=== PATIENT | female | born 1930 | race Caucasian/White ===

== ENCOUNTER 2016-04-23 12:49 | Emergency (ER) | payer MEDICARE, BC ==
[2016-04-23] MEDS ORDERED: MORPHINE SULFATE 10 MG/ML SOL IV ONE (13:21)
[2016-04-23] MEDS ORDERED: MORPHINE SULFATE 10 MG/ML SOL ONE (13:41)
[2016-04-23 13:58] VITALS: PULSE 64; RESP 16; TEMP 98.9
[2016-04-23 14:24] VITALS: BP 204/88; O2SAT 98
== END 2016-04-23 14:15 | disposition short-term general hospital (02) | DRG 536 ==
LOC: ED 12:49
DX: S72.001A Fracture of unspecified part of neck of right femur, initial encounter for closed fracture (principal); M25.571 Pain in right ankle and joints of right foot; W19.XXXA Unspecified fall, initial encounter
CPT/HCPCS: 73600; 96374; 99284; 99285; J2270

== ENCOUNTER 2016-05-09 12:03 | Inpatient (IN) | payer MEDICARE, BC ==
[2016-05-09] MEDS ORDERED: PATIENT EDUCATION 1 MISC PRN (17:14)
[2016-05-09] MEDS ORDERED: WARFARIN SODIUM 4 MG PO SCH (18:00)
[2016-05-09] MEDS: WARFARIN SODIUM 2 MG TAB PO SCH (19:28)
[2016-05-09] MEDS: CALCIUM CARBONATE 500 MG TAB PO SCH (20:55)
[2016-05-09] MEDS: ACETAMINOPHEN 500 MG 500 MG TAB PO PRN (20:56)
[2016-05-09] MEDS: LABETALOL HYDROCHLORIDE 100 MG TAB PO SCH (20:56)
[2016-05-09] MEDS: APAP/OXYCODONE 325/5 TAB PO PRN (22:40)
[2016-05-10] MEDS: APAP/OXYCODONE 325/5 TAB PO PRN (05:05)
[2016-05-10 07:19] LABS: CALCIUM 8.4 mg/dl (8.5-10.1)
[2016-05-10 07:20] LABS: BASOPHILS % (AUTO) 1 % (0-3); EOSINOPHILS % (AUTO) 1 % (0-9); HEMATOCRIT 26 % (35-47); MEAN CORPUSCULAR HGB CONC 34.8 gm/dl (32.0-36.0); MEAN CORPUSCULAR VOLUME 86 fL (81-99); MONOCYTES % (AUTO) 9.2 % (0-12); NEUTROPHILS % (AUTO) 81.7 % (37-80)
[2016-05-10] MEDS: PANTOPRAZOLE SODIUM 40 MG ECT PO SCH (08:06)
[2016-05-10] MEDS: FLUTICASONE PROPIONATE SPR NAS SCH (09:24)
[2016-05-10] MEDS: LABETALOL HYDROCHLORIDE 100 MG TAB PO SCH ×2 (09:24→20:21)
[2016-05-10] MEDS: CALCIUM CARBONATE 500 MG TAB PO SCH ×2 (09:24→20:20)
[2016-05-10] MEDS: ASPIRIN EC 81 MG PO SCH (09:26)
[2016-05-10] MEDS: FUROSEMIDE 40 MG TAB PO SCH (09:26)
[2016-05-10] MEDS: FERROUS SULFATE 325 MG TAB PO SCH (09:26)
[2016-05-10] MEDS: MULTIVITAMIN2 1 EA TAB PO SCH (09:26)
[2016-05-10] MEDS: GLUCOSAMINE SULFATE 500 MG CAP PO SCH ×2 (09:27→20:23)
[2016-05-10] MEDS: FUROSEMIDE 20 MG TAB PO SCH (13:00)
[2016-05-10] MEDS ORDERED: WARFARIN SODIUM 4 MG TAB PO SCH (18:00)
[2016-05-10] MEDS ORDERED: WARFARIN SODIUM 2 MG TAB PO SCH (18:00)
[2016-05-11] MEDS: PANTOPRAZOLE SODIUM 40 MG ECT PO SCH (06:36)
[2016-05-11] MEDS: ACETAMINOPHEN 500 MG 500 MG TAB PO PRN ×3 (07:37→22:00)
[2016-05-11] MEDS: FLUTICASONE PROPIONATE SPR NAS SCH (08:47)
[2016-05-11] MEDS: FERROUS SULFATE 325 MG TAB PO SCH (08:48)
[2016-05-11] MEDS: ASPIRIN EC 81 MG PO SCH (08:48)
[2016-05-11] MEDS: GLUCOSAMINE SULFATE 500 MG CAP PO SCH ×2 (08:48→20:06)
[2016-05-11] MEDS: CALCIUM CARBONATE 500 MG TAB PO SCH ×2 (08:49→20:05)
[2016-05-11] MEDS: LABETALOL HYDROCHLORIDE 100 MG TAB PO SCH ×2 (08:49→20:05)
[2016-05-11] MEDS: FUROSEMIDE 40 MG TAB PO SCH (08:49)
[2016-05-11] MEDS: MULTIVITAMIN2 1 EA TAB PO SCH (08:49)
[2016-05-11] MEDS: FUROSEMIDE 20 MG TAB PO SCH (12:02)
[2016-05-11] MEDS: WARFARIN SODIUM 2 MG TAB PO SCH (17:23)
[2016-05-11] MEDS: LISINOPRIL 20 MG TAB PO SCH (17:23)
[2016-05-12] MEDS: PANTOPRAZOLE SODIUM 40 MG ECT PO SCH (06:15)
[2016-05-12] MEDS: ACETAMINOPHEN 500 MG 500 MG TAB PO PRN ×2 (06:26→20:00)
[2016-05-12 07:41] LABS: APPEARANCE,URINE Clear; BILIRUBIN,URINE NEGATIVE (NEGATIVE); COLOR,URINE Yellow; GLUCOSE, URINE (UA) NEGATIVE (NEGATIVE); KETONES,URINE NEGATIVE (NEGATIVE); LEUKOCYTE ESTERASE ,URINE NEGATIVE (NEGATIVE); NITRATE,URINE NEGATIVE (NEGATIVE); OCCULT BLOOD,URINE NEGATIVE (NEG-TRACE); PH,URINE 5.5; UROBILINOGEN,URINE 0.2 (0.2-1.0 EU)
[2016-05-12 08:24] LABS: RBC,URINE NEG (0-3AV/HPF); WBC,URINE 0-2 (0-5AV/HPF)
[2016-05-12] MEDS: LABETALOL HYDROCHLORIDE 100 MG TAB PO SCH ×2 (08:40→20:01)
[2016-05-12] MEDS: FERROUS SULFATE 325 MG TAB PO SCH (08:41)
[2016-05-12] MEDS: CALCIUM CARBONATE 500 MG TAB PO SCH ×2 (08:41→20:01)
[2016-05-12] MEDS: ASPIRIN EC 81 MG PO SCH (08:41)
[2016-05-12] MEDS: MULTIVITAMIN2 1 EA TAB PO SCH (08:42)
[2016-05-12] MEDS: FLUTICASONE PROPIONATE SPR NAS SCH (08:42)
[2016-05-12] MEDS: GLUCOSAMINE SULFATE 500 MG CAP PO SCH ×2 (08:43→20:01)
[2016-05-12] MEDS: FUROSEMIDE 40 MG TAB PO SCH (08:44)
[2016-05-12] MEDS: LISINOPRIL 20 MG TAB PO SCH (08:45)
[2016-05-12] MEDS: FUROSEMIDE 20 MG TAB PO SCH (12:09)
[2016-05-12] MEDS ORDERED: WARFARIN SODIUM 2 MG TAB PO SCH (18:00)
[2016-05-12] MEDS ORDERED: WARFARIN SODIUM 1 MG TAB ONE ×2 (19:08)
[2016-05-12] MEDS: WARFARIN SODIUM 2 MG TAB PO SCH (19:10)
[2016-05-12] MEDS: TAMSULOSIN HYDROCHLORIDE 0.4 MG CAP PO SCH (20:02)
[2016-05-13] MEDS: PANTOPRAZOLE SODIUM 40 MG ECT PO SCH (06:15)
[2016-05-13] MEDS: ACETAMINOPHEN 500 MG 500 MG TAB PO PRN ×2 (06:17→22:55)
[2016-05-13 07:12] LABS: CALCIUM 8.2 mg/dl (8.5-10.1); POTASSIUM 3.9 mMol/L (3.5-5.1)
[2016-05-13 07:20] LABS: BASOPHILS % (AUTO) 1 % (0-3); EOSINOPHILS % (AUTO) 1 % (0-9); HEMATOCRIT 26 % (35-47); MEAN CORPUSCULAR HGB CONC 33.3 gm/dl (32.0-36.0); MEAN CORPUSCULAR VOLUME 86 fL (81-99); MONOCYTES % (AUTO) 6.9 % (0-12); NEUTROPHILS % (AUTO) 80.9 % (37-80)
[2016-05-13] MEDS: ASPIRIN EC 81 MG PO SCH (09:06)
[2016-05-13] MEDS: FERROUS SULFATE 325 MG TAB PO SCH (09:06)
[2016-05-13] MEDS: CALCIUM CARBONATE 500 MG TAB PO SCH ×2 (09:07→20:43)
[2016-05-13] MEDS: MULTIVITAMIN2 1 EA TAB PO SCH (09:07)
[2016-05-13] MEDS: FUROSEMIDE 40 MG TAB PO SCH (09:07)
[2016-05-13] MEDS: LABETALOL HYDROCHLORIDE 100 MG TAB PO SCH ×2 (09:08→20:44)
[2016-05-13] MEDS: FLUTICASONE PROPIONATE SPR NAS SCH (09:09)
[2016-05-13] MEDS: LISINOPRIL 20 MG TAB PO SCH (09:18)
[2016-05-13] MEDS: GLUCOSAMINE SULFATE 500 MG CAP PO SCH ×2 (14:29→20:43)
[2016-05-13] MEDS: FUROSEMIDE 20 MG TAB PO SCH (14:30)
[2016-05-13] MEDS ORDERED: WARFARIN SODIUM 6 MG TAB PO SCH ×2 (18:00→18:15)
[2016-05-13] MEDS ORDERED: WARFARIN SODIUM 2 MG TAB PO SCH (18:00)
[2016-05-13] MEDS ORDERED: WARFARIN SODIUM 3 MG TAB PO SCH (18:25)
[2016-05-13] MEDS: TAMSULOSIN HYDROCHLORIDE 0.4 MG CAP PO SCH (20:45)
[2016-05-13] MEDS: ZOLPIDEM TARTRATE 5 MG TAB PO PRN (22:30)
[2016-05-14] MEDS: PANTOPRAZOLE SODIUM 40 MG ECT PO SCH (06:45)
[2016-05-14] MEDS: CALCIUM CARBONATE 500 MG TAB PO SCH ×2 (08:56→20:35)
[2016-05-14] MEDS: FLUTICASONE PROPIONATE SPR NAS SCH (08:56)
[2016-05-14] MEDS: FERROUS SULFATE 325 MG TAB PO SCH (08:57)
[2016-05-14] MEDS: ASPIRIN EC 81 MG PO SCH (08:57)
[2016-05-14] MEDS: LABETALOL HYDROCHLORIDE 100 MG TAB PO SCH ×2 (08:57→20:36)
[2016-05-14] MEDS: LISINOPRIL 20 MG TAB PO SCH (08:57)
[2016-05-14] MEDS: MULTIVITAMIN2 1 EA TAB PO SCH (08:57)
[2016-05-14] MEDS: FUROSEMIDE 40 MG TAB PO SCH (08:57)
[2016-05-14] MEDS: GLUCOSAMINE SULFATE 500 MG CAP PO SCH ×2 (08:58→20:35)
[2016-05-14] MEDS: ACETAMINOPHEN 500 MG 500 MG TAB PO PRN (11:46)
[2016-05-14] MEDS: FUROSEMIDE 20 MG TAB PO SCH (11:47)
[2016-05-14] MEDS ORDERED: WARFARIN SODIUM 4 MG TAB PO SCH (18:00)
[2016-05-14] MEDS: TAMSULOSIN HYDROCHLORIDE 0.4 MG CAP PO SCH (20:34)
[2016-05-14] MEDS: ZOLPIDEM TARTRATE 5 MG TAB PO PRN (22:11)
[2016-05-15] MEDS: PANTOPRAZOLE SODIUM 40 MG ECT PO SCH (08:06)
[2016-05-15] MEDS: ASPIRIN EC 81 MG PO SCH (10:01)
[2016-05-15] MEDS: FERROUS SULFATE 325 MG TAB PO SCH (10:02)
[2016-05-15] MEDS: FLUTICASONE PROPIONATE SPR NAS SCH (10:02)
[2016-05-15] MEDS: GLUCOSAMINE SULFATE 500 MG CAP PO SCH ×2 (10:02→20:49)
[2016-05-15] MEDS: FUROSEMIDE 40 MG TAB PO SCH (10:02)
[2016-05-15] MEDS: MULTIVITAMIN2 1 EA TAB PO SCH (10:03)
[2016-05-15] MEDS: CALCIUM CARBONATE 500 MG TAB PO SCH ×2 (10:03→20:49)
[2016-05-15] MEDS: LISINOPRIL 20 MG TAB PO SCH (10:04)
[2016-05-15] MEDS: LABETALOL HYDROCHLORIDE 100 MG TAB PO SCH ×2 (10:04→20:49)
[2016-05-15] MEDS: FUROSEMIDE 20 MG TAB PO SCH (11:39)
[2016-05-15] MEDS ORDERED: WARFARIN SODIUM 6 MG TAB PO SCH (18:00)
[2016-05-15] MEDS: TAMSULOSIN HYDROCHLORIDE 0.4 MG CAP PO SCH (20:48)
[2016-05-15] MEDS: ZOLPIDEM TARTRATE 5 MG TAB PO PRN (21:39)
[2016-05-16] MEDS: PANTOPRAZOLE SODIUM 40 MG ECT PO SCH (06:37)
[2016-05-16] MEDS: FERROUS SULFATE 325 MG TAB PO SCH (09:01)
[2016-05-16] MEDS: FUROSEMIDE 40 MG TAB PO SCH (09:01)
[2016-05-16] MEDS: LISINOPRIL 20 MG TAB PO SCH (09:01)
[2016-05-16] MEDS: CALCIUM CARBONATE 500 MG TAB PO SCH ×2 (09:03→20:00)
[2016-05-16] MEDS: LABETALOL HYDROCHLORIDE 100 MG TAB PO SCH ×2 (09:04→20:01)
[2016-05-16] MEDS: ASPIRIN EC 81 MG PO SCH (09:05)
[2016-05-16] MEDS: FLUTICASONE PROPIONATE SPR NAS SCH (09:05)
[2016-05-16] MEDS: MULTIVITAMIN2 1 EA TAB PO SCH (09:06)
[2016-05-16] MEDS: GLUCOSAMINE SULFATE 500 MG CAP PO SCH ×2 (09:06→20:02)
[2016-05-16 10:26] LABS: BASOPHILS % (AUTO) 1 % (0-3); EOSINOPHILS % (AUTO) 2 % (0-9); HEMATOCRIT 27 % (35-47); MEAN CORPUSCULAR HGB CONC 32.7 gm/dl (32.0-36.0); MEAN CORPUSCULAR VOLUME 87 fL (81-99)
[2016-05-16] MEDS: FUROSEMIDE 20 MG TAB PO SCH (11:55)
[2016-05-16] MEDS ORDERED: WARFARIN SODIUM 2 MG TAB PO SCH (18:00)
[2016-05-16] MEDS: TAMSULOSIN HYDROCHLORIDE 0.4 MG CAP PO SCH (20:01)
[2016-05-17] MEDS: PANTOPRAZOLE SODIUM 40 MG ECT PO SCH (06:12)
[2016-05-17] MEDS: FLUTICASONE PROPIONATE SPR NAS SCH (08:27)
[2016-05-17] MEDS: MULTIVITAMIN2 1 EA TAB PO SCH (08:28)
[2016-05-17] MEDS: LISINOPRIL 20 MG TAB PO SCH (08:28)
[2016-05-17] MEDS: LABETALOL HYDROCHLORIDE 100 MG TAB PO SCH ×2 (08:28→20:25)
[2016-05-17] MEDS: CALCIUM CARBONATE 500 MG TAB PO SCH ×2 (08:28→20:23)
[2016-05-17] MEDS: FERROUS SULFATE 325 MG TAB PO SCH (08:28)
[2016-05-17] MEDS: ASPIRIN EC 81 MG PO SCH (08:29)
[2016-05-17] MEDS: GLUCOSAMINE SULFATE 500 MG CAP PO SCH ×2 (08:29→20:22)
[2016-05-17] MEDS: FUROSEMIDE 40 MG TAB PO SCH (08:29)
[2016-05-17] MEDS: FUROSEMIDE 20 MG TAB PO SCH (12:48)
[2016-05-17] MEDS: WARFARIN SODIUM 2 MG TAB PO SCH (18:36)
[2016-05-17] MEDS: TAMSULOSIN HYDROCHLORIDE 0.4 MG CAP PO SCH (20:22)
[2016-05-17] MEDS: ZOLPIDEM TARTRATE 5 MG TAB PO PRN (22:02)
[2016-05-18] MEDS: PANTOPRAZOLE SODIUM 40 MG ECT PO SCH (06:37)
[2016-05-18] MEDS: ACETAMINOPHEN 500 MG 500 MG TAB PO PRN ×2 (08:27→20:27)
[2016-05-18] MEDS: CALCIUM CARBONATE 500 MG TAB PO SCH ×2 (08:28→20:24)
[2016-05-18] MEDS: LABETALOL HYDROCHLORIDE 100 MG TAB PO SCH ×2 (08:30→20:25)
[2016-05-18] MEDS: ASPIRIN EC 81 MG PO SCH (08:31)
[2016-05-18] MEDS: FERROUS SULFATE 325 MG TAB PO SCH (08:32)
[2016-05-18] MEDS: FLUTICASONE PROPIONATE SPR NAS SCH (08:32)
[2016-05-18] MEDS: GLUCOSAMINE SULFATE 500 MG CAP PO SCH ×2 (08:33→20:24)
[2016-05-18] MEDS: FUROSEMIDE 40 MG TAB PO SCH (08:34)
[2016-05-18] MEDS: MULTIVITAMIN2 1 EA TAB PO SCH (08:34)
[2016-05-18] MEDS: LISINOPRIL 20 MG TAB PO SCH (08:37)
[2016-05-18] MEDS: FUROSEMIDE 20 MG TAB PO SCH (12:15)
[2016-05-18] MEDS: WARFARIN SODIUM 2 MG TAB PO SCH (18:11)
[2016-05-18] MEDS: TAMSULOSIN HYDROCHLORIDE 0.4 MG CAP PO SCH (20:23)
[2016-05-18] MEDS: ZOLPIDEM TARTRATE 5 MG TAB PO PRN (20:27)
[2016-05-19] MEDS: ACETAMINOPHEN 500 MG 500 MG TAB PO PRN (06:18)
[2016-05-19] MEDS: PANTOPRAZOLE SODIUM 40 MG ECT PO SCH (06:18)
[2016-05-19] MEDS: ASPIRIN EC 81 MG PO SCH (08:16)
[2016-05-19] MEDS: FERROUS SULFATE 325 MG TAB PO SCH (08:16)
[2016-05-19] MEDS: FLUTICASONE PROPIONATE SPR NAS SCH (08:17)
[2016-05-19] MEDS: CALCIUM CARBONATE 500 MG TAB PO SCH ×2 (08:18→21:29)
[2016-05-19] MEDS: FUROSEMIDE 40 MG TAB PO SCH (08:18)
[2016-05-19] MEDS: LISINOPRIL 20 MG TAB PO SCH (08:19)
[2016-05-19] MEDS: MULTIVITAMIN2 1 EA TAB PO SCH (08:19)
[2016-05-19] MEDS: LABETALOL HYDROCHLORIDE 100 MG TAB PO SCH ×2 (08:20→21:27)
[2016-05-19] MEDS: GLUCOSAMINE SULFATE 500 MG CAP PO SCH ×2 (09:34→21:27)
[2016-05-19] MEDS: FUROSEMIDE 20 MG TAB PO SCH (12:01)
[2016-05-19] MEDS ORDERED: WARFARIN SODIUM 6 MG TAB PO SCH (18:00)
[2016-05-19] MEDS: TAMSULOSIN HYDROCHLORIDE 0.4 MG CAP PO SCH (21:26)
[2016-05-19] MEDS: ZOLPIDEM TARTRATE 5 MG TAB PO PRN (21:26)
[2016-05-20] MEDS: ACETAMINOPHEN 500 MG 500 MG TAB PO PRN ×2 (05:55→23:26)
[2016-05-20] MEDS: PANTOPRAZOLE SODIUM 40 MG ECT PO SCH (06:00)
[2016-05-20] MEDS: FERROUS SULFATE 325 MG TAB PO SCH (08:37)
[2016-05-20] MEDS: FLUTICASONE PROPIONATE SPR NAS SCH (08:37)
[2016-05-20] MEDS: ASPIRIN EC 81 MG PO SCH (08:37)
[2016-05-20] MEDS: CALCIUM CARBONATE 500 MG TAB PO SCH ×2 (08:38→20:06)
[2016-05-20] MEDS: GLUCOSAMINE SULFATE 500 MG CAP PO SCH ×2 (08:38→20:08)
[2016-05-20] MEDS: FUROSEMIDE 40 MG TAB PO SCH (08:38)
[2016-05-20] MEDS: LISINOPRIL 20 MG TAB PO SCH (08:39)
[2016-05-20] MEDS: MULTIVITAMIN2 1 EA TAB PO SCH (08:39)
[2016-05-20] MEDS: LABETALOL HYDROCHLORIDE 100 MG TAB PO SCH ×2 (08:39→20:06)
[2016-05-20] MEDS: AMLODIPINE 5 MG TAB PO SCH (09:16)
[2016-05-20] MEDS: FUROSEMIDE 20 MG TAB PO SCH (11:43)
[2016-05-20] MEDS ORDERED: WARFARIN SODIUM 2 MG TAB PO SCH (15:15)
[2016-05-20] MEDS: WARFARIN SODIUM 2 MG TAB PO SCH (18:02)
[2016-05-20] MEDS: ZOLPIDEM TARTRATE 5 MG TAB PO PRN (20:12)
[2016-05-21] MEDS: PANTOPRAZOLE SODIUM 40 MG ECT PO SCH (07:12)
[2016-05-21 07:20] LABS: CALCIUM 8.4 mg/dl (8.5-10.1); POTASSIUM 3.8 mMol/L (3.5-5.1)
[2016-05-21] MEDS: CALCIUM CARBONATE 500 MG TAB PO SCH ×2 (08:35→21:02)
[2016-05-21] MEDS: LABETALOL HYDROCHLORIDE 100 MG TAB PO SCH ×2 (08:39→21:01)
[2016-05-21] MEDS: FERROUS SULFATE 325 MG TAB PO SCH (08:41)
[2016-05-21] MEDS: ASPIRIN EC 81 MG PO SCH (08:41)
[2016-05-21] MEDS: GLUCOSAMINE SULFATE 500 MG CAP PO SCH ×2 (08:42→21:00)
[2016-05-21] MEDS: FUROSEMIDE 40 MG TAB PO SCH (08:42)
[2016-05-21] MEDS: FLUTICASONE PROPIONATE SPR NAS SCH (08:42)
[2016-05-21] MEDS: MULTIVITAMIN2 1 EA TAB PO SCH (08:42)
[2016-05-21] MEDS: LISINOPRIL 20 MG TAB PO SCH (08:43)
[2016-05-21] MEDS: AMLODIPINE 5 MG TAB PO SCH (08:43)
[2016-05-21] MEDS: FUROSEMIDE 20 MG TAB PO SCH (12:15)
[2016-05-21] MEDS: WARFARIN SODIUM 2 MG TAB PO SCH (18:09)
[2016-05-21] MEDS: ZOLPIDEM TARTRATE 5 MG TAB PO PRN (21:00)
[2016-05-21] MEDS: ACETAMINOPHEN 500 MG 500 MG TAB PO PRN (23:29)
[2016-05-22] MEDS: PANTOPRAZOLE SODIUM 40 MG ECT PO SCH (06:12)
[2016-05-22] MEDS: CALCIUM CARBONATE 500 MG TAB PO SCH ×2 (08:58→20:30)
[2016-05-22] MEDS: LABETALOL HYDROCHLORIDE 100 MG TAB PO SCH ×2 (08:59→20:31)
[2016-05-22] MEDS: ASPIRIN EC 81 MG PO SCH (09:00)
[2016-05-22] MEDS: FERROUS SULFATE 325 MG TAB PO SCH (09:01)
[2016-05-22] MEDS: MULTIVITAMIN2 1 EA TAB PO SCH (09:02)
[2016-05-22] MEDS: FLUTICASONE PROPIONATE SPR NAS SCH (09:02)
[2016-05-22] MEDS: FUROSEMIDE 40 MG TAB PO SCH (09:02)
[2016-05-22] MEDS: GLUCOSAMINE SULFATE 500 MG CAP PO SCH ×2 (09:02→20:30)
[2016-05-22] MEDS: AMLODIPINE 5 MG TAB PO SCH (09:03)
[2016-05-22] MEDS: LISINOPRIL 20 MG TAB PO SCH (09:03)
[2016-05-22] MEDS: FUROSEMIDE 20 MG TAB PO SCH (11:46)
[2016-05-22] MEDS ORDERED: WARFARIN SODIUM 6 MG TAB PO SCH (18:00)
[2016-05-22] MEDS: ZOLPIDEM TARTRATE 5 MG TAB PO PRN (20:30)
[2016-05-23] MEDS: PANTOPRAZOLE SODIUM 40 MG ECT PO SCH (06:47)
[2016-05-23] MEDS: ASPIRIN EC 81 MG PO SCH (09:32)
[2016-05-23] MEDS: FLUTICASONE PROPIONATE SPR NAS SCH (09:33)
[2016-05-23] MEDS: FERROUS SULFATE 325 MG TAB PO SCH (09:33)
[2016-05-23] MEDS: FUROSEMIDE 40 MG TAB PO SCH (09:34)
[2016-05-23] MEDS: GLUCOSAMINE SULFATE 500 MG CAP PO SCH ×2 (09:34→20:06)
[2016-05-23] MEDS: AMLODIPINE 5 MG TAB PO SCH (09:35)
[2016-05-23] MEDS: CALCIUM CARBONATE 500 MG TAB PO SCH ×2 (09:35→20:05)
[2016-05-23] MEDS: MULTIVITAMIN2 1 EA TAB PO SCH (09:36)
[2016-05-23] MEDS: LABETALOL HYDROCHLORIDE 100 MG TAB PO SCH ×2 (09:37→20:06)
[2016-05-23] MEDS: LISINOPRIL 20 MG TAB PO SCH (09:37)
[2016-05-23] MEDS: FUROSEMIDE 20 MG TAB PO SCH (11:45)
[2016-05-23] MEDS ORDERED: WARFARIN SODIUM 1 MG TAB PO ONE (18:00)
[2016-05-23] MEDS: ZOLPIDEM TARTRATE 5 MG TAB PO PRN (20:09)
[2016-05-23] MEDS: ACETAMINOPHEN 500 MG 500 MG TAB PO PRN (22:47)
[2016-05-24] MEDS: PANTOPRAZOLE SODIUM 40 MG ECT PO SCH (06:16)
[2016-05-24] MEDS: ASPIRIN EC 81 MG PO SCH (09:38)
[2016-05-24] MEDS: CALCIUM CARBONATE 500 MG TAB PO SCH ×2 (09:38→20:31)
[2016-05-24] MEDS: GLUCOSAMINE SULFATE 500 MG CAP PO SCH ×2 (09:39→20:31)
[2016-05-24] MEDS: LABETALOL HYDROCHLORIDE 100 MG TAB PO SCH ×2 (09:39→20:33)
[2016-05-24] MEDS: MULTIVITAMIN2 1 EA TAB PO SCH (09:39)
[2016-05-24] MEDS: FUROSEMIDE 40 MG TAB PO SCH (09:39)
[2016-05-24] MEDS: AMLODIPINE 5 MG TAB PO SCH (09:39)
[2016-05-24] MEDS: LISINOPRIL 20 MG TAB PO SCH (09:39)
[2016-05-24] MEDS: FERROUS SULFATE 325 MG TAB PO SCH (09:40)
[2016-05-24] MEDS: FLUTICASONE PROPIONATE SPR NAS SCH (09:40)
[2016-05-24 10:58] LABS: APPEARANCE,URINE Slightly Cloudy; BILIRUBIN,URINE NEGATIVE (NEGATIVE); COLOR,URINE Yellow; GLUCOSE, URINE (UA) NEGATIVE (NEGATIVE); KETONES,URINE NEGATIVE (NEGATIVE); LEUKOCYTE ESTERASE ,URINE NEGATIVE (NEGATIVE); NITRATE,URINE POSITIVE (NEGATIVE); OCCULT BLOOD,URINE 1+ (NEG-TRACE); PH,URINE 5.5; UROBILINOGEN,URINE 0.2 (0.2-1.0 EU)
[2016-05-24 11:21] LABS: WBC,URINE 30-35 (0-5AV/HPF)
[2016-05-24] MEDS: FUROSEMIDE 20 MG TAB PO SCH (12:50)
[2016-05-24] MEDS: CIPROFLOXACIN HCL 500 MG TAB PO SCH ×2 (12:51→20:36)
[2016-05-24] MEDS: WARFARIN SODIUM 4 MG TAB PO SCH (18:32)
[2016-05-24] MEDS: ZOLPIDEM TARTRATE 5 MG TAB PO PRN (20:32)
[2016-05-25] MEDS: PANTOPRAZOLE SODIUM 40 MG ECT PO SCH (07:09)
[2016-05-25] MEDS: MULTIVITAMIN2 1 EA TAB PO SCH (09:33)
[2016-05-25] MEDS: ASPIRIN EC 81 MG PO SCH (09:33)
[2016-05-25] MEDS: FERROUS SULFATE 325 MG TAB PO SCH (09:33)
[2016-05-25] MEDS: CIPROFLOXACIN HCL 500 MG TAB PO SCH ×2 (09:33→20:30)
[2016-05-25] MEDS: CALCIUM CARBONATE 500 MG TAB PO SCH ×2 (09:33→20:31)
[2016-05-25] MEDS: FUROSEMIDE 40 MG TAB PO SCH (09:33)
[2016-05-25] MEDS: LISINOPRIL 20 MG TAB PO SCH (09:33)
[2016-05-25] MEDS: FLUTICASONE PROPIONATE SPR NAS SCH (09:33)
[2016-05-25] MEDS: AMLODIPINE 5 MG TAB PO SCH (09:34)
[2016-05-25] MEDS: LABETALOL HYDROCHLORIDE 100 MG TAB PO SCH ×2 (09:34→20:31)
[2016-05-25] MEDS: GLUCOSAMINE SULFATE 500 MG CAP PO SCH ×2 (10:53→20:31)
[2016-05-25] MEDS: FUROSEMIDE 20 MG TAB PO SCH (12:46)
[2016-05-25] MEDS: WARFARIN SODIUM 4 MG TAB PO SCH (18:38)
[2016-05-25] MEDS: ZOLPIDEM TARTRATE 5 MG TAB PO PRN (20:44)
[2016-05-26] MEDS: PANTOPRAZOLE SODIUM 40 MG ECT PO SCH (07:02)
[2016-05-26 09:14] LABS: CALCIUM 8.7 mg/dl (8.5-10.1); POTASSIUM 4.2 mMol/L (3.5-5.1)
[2016-05-26 09:15] LABS: BASOPHILS % (AUTO) 1 % (0-3); EOSINOPHILS % (AUTO) 2 % (0-9); HEMATOCRIT 31 % (35-47); MEAN CORPUSCULAR HGB CONC 31.7 gm/dl (32.0-36.0); MEAN CORPUSCULAR VOLUME 86 fL (81-99); MONOCYTES % (AUTO) 7.4 % (0-12); NEUTROPHILS % (AUTO) 75.4 % (37-80)
[2016-05-26] MEDS: MULTIVITAMIN2 1 EA TAB PO SCH (09:29)
[2016-05-26] MEDS: CALCIUM CARBONATE 500 MG TAB PO SCH ×2 (09:29→20:14)
[2016-05-26] MEDS: ASPIRIN EC 81 MG PO SCH (09:30)
[2016-05-26] MEDS: LABETALOL HYDROCHLORIDE 100 MG TAB PO SCH ×2 (09:30→20:15)
[2016-05-26] MEDS: FERROUS SULFATE 325 MG TAB PO SCH (09:31)
[2016-05-26] MEDS: AMLODIPINE 5 MG TAB PO SCH (09:31)
[2016-05-26] MEDS: LISINOPRIL 20 MG TAB PO SCH (09:32)
[2016-05-26] MEDS: FUROSEMIDE 40 MG TAB PO SCH (09:32)
[2016-05-26] MEDS: GLUCOSAMINE SULFATE 500 MG CAP PO SCH ×2 (09:32→20:15)
[2016-05-26] MEDS: FLUTICASONE PROPIONATE SPR NAS SCH (09:32)
[2016-05-26] MEDS: CIPROFLOXACIN HCL 500 MG TAB PO SCH ×2 (09:38→20:18)
[2016-05-26] MEDS: FUROSEMIDE 20 MG TAB PO SCH (13:18)
[2016-05-26] MEDS: WARFARIN SODIUM 4 MG TAB PO SCH (18:52)
[2016-05-26] MEDS: ZOLPIDEM TARTRATE 5 MG TAB PO PRN (20:20)
[2016-05-27] MEDS: PANTOPRAZOLE SODIUM 40 MG ECT PO SCH (07:13)
[2016-05-27] MEDS: CALCIUM CARBONATE 500 MG TAB PO SCH ×2 (08:49→20:21)
[2016-05-27] MEDS: LABETALOL HYDROCHLORIDE 100 MG TAB PO SCH ×2 (08:49→20:21)
[2016-05-27] MEDS: FLUTICASONE PROPIONATE SPR NAS SCH (08:50)
[2016-05-27] MEDS: ASPIRIN EC 81 MG PO SCH (08:50)
[2016-05-27] MEDS: FERROUS SULFATE 325 MG TAB PO SCH (08:50)
[2016-05-27] MEDS: MULTIVITAMIN2 1 EA TAB PO SCH (08:51)
[2016-05-27] MEDS: LISINOPRIL 20 MG TAB PO SCH (08:51)
[2016-05-27] MEDS: FUROSEMIDE 40 MG TAB PO SCH (08:51)
[2016-05-27] MEDS: GLUCOSAMINE SULFATE 500 MG CAP PO SCH ×2 (08:51→20:20)
[2016-05-27] MEDS: CIPROFLOXACIN HCL 500 MG TAB PO SCH ×2 (08:53→20:22)
[2016-05-27] MEDS: AMLODIPINE 5 MG TAB PO SCH (09:39)
[2016-05-27] MEDS: FUROSEMIDE 20 MG TAB PO SCH (12:14)
[2016-05-27] MEDS: WARFARIN SODIUM 4 MG TAB PO SCH (17:32)
[2016-05-27] MEDS: ACETAMINOPHEN 500 MG 500 MG TAB PO PRN (17:32)
[2016-05-27] MEDS: ZOLPIDEM TARTRATE 5 MG TAB PO PRN (20:20)
[2016-05-28] MEDS: ACETAMINOPHEN 500 MG 500 MG TAB PO PRN ×3 (00:13→20:27)
[2016-05-28] MEDS: PANTOPRAZOLE SODIUM 40 MG ECT PO SCH (07:14)
[2016-05-28 07:38] LABS: BASOPHILS % (AUTO) 1 % (0-3); EOSINOPHILS % (AUTO) 2 % (0-9); HEMATOCRIT 27 % (35-47); MEAN CORPUSCULAR HGB CONC 32.4 gm/dl (32.0-36.0); MEAN CORPUSCULAR VOLUME 86 fL (81-99); MONOCYTES % (AUTO) 9.9 % (0-12); NEUTROPHILS % (AUTO) 70.5 % (37-80)
[2016-05-28 07:45] LABS: ALBUMIN 2.7 gm/dl (3.4-5.0); CALCIUM 8.5 mg/dl (8.5-10.1); POTASSIUM 3.8 mMol/L (3.5-5.1)
[2016-05-28] MEDS: CALCIUM CARBONATE 500 MG TAB PO SCH ×2 (09:56→20:17)
[2016-05-28] MEDS: LABETALOL HYDROCHLORIDE 100 MG TAB PO SCH ×2 (09:57→20:19)
[2016-05-28] MEDS: FERROUS SULFATE 325 MG TAB PO SCH (09:58)
[2016-05-28] MEDS: FLUTICASONE PROPIONATE SPR NAS SCH (09:58)
[2016-05-28] MEDS: GLUCOSAMINE SULFATE 500 MG CAP PO SCH ×2 (09:58→20:19)
[2016-05-28] MEDS: ASPIRIN EC 81 MG PO SCH (09:58)
[2016-05-28] MEDS: MULTIVITAMIN2 1 EA TAB PO SCH (09:59)
[2016-05-28] MEDS: FUROSEMIDE 40 MG TAB PO SCH (09:59)
[2016-05-28] MEDS: CIPROFLOXACIN HCL 500 MG TAB PO SCH ×2 (10:00→20:18)
[2016-05-28] MEDS: AMLODIPINE 5 MG TAB PO SCH (10:00)
[2016-05-28] MEDS: LISINOPRIL 20 MG TAB PO SCH (10:00)
[2016-05-28] MEDS: FUROSEMIDE 20 MG TAB PO SCH (11:38)
[2016-05-28] MEDS: WARFARIN SODIUM 4 MG TAB PO SCH (17:29)
[2016-05-28] MEDS: ZOLPIDEM TARTRATE 5 MG TAB PO PRN (20:17)
[2016-05-29] MEDS: ACETAMINOPHEN 500 MG 500 MG TAB PO PRN ×2 (02:00→20:27)
[2016-05-29] MEDS: PANTOPRAZOLE SODIUM 40 MG ECT PO SCH (07:04)
[2016-05-29] MEDS: FERROUS SULFATE 325 MG TAB PO SCH (09:30)
[2016-05-29] MEDS: MULTIVITAMIN2 1 EA TAB PO SCH (09:31)
[2016-05-29] MEDS: AMLODIPINE 5 MG TAB PO SCH (09:31)
[2016-05-29] MEDS: LISINOPRIL 20 MG TAB PO SCH (09:31)
[2016-05-29] MEDS: CALCIUM CARBONATE 500 MG TAB PO SCH ×2 (09:31→20:25)
[2016-05-29] MEDS: LABETALOL HYDROCHLORIDE 100 MG TAB PO SCH ×2 (09:32→20:26)
[2016-05-29] MEDS: GLUCOSAMINE SULFATE 500 MG CAP PO SCH ×2 (09:32→20:26)
[2016-05-29] MEDS: FLUTICASONE PROPIONATE SPR NAS SCH (09:32)
[2016-05-29] MEDS: FUROSEMIDE 40 MG TAB PO SCH (09:33)
[2016-05-29] MEDS: ASPIRIN EC 81 MG PO SCH (10:02)
[2016-05-29] MEDS: FUROSEMIDE 20 MG TAB PO SCH (12:03)
[2016-05-29] MEDS ORDERED: SODIUM CHLORIDE 0.9% 250 ML 250 ML IV ONE (14:30)
[2016-05-29 14:35] LABS: ABO A; ANTIBODY SCREEN Negative; RH TYPE Positive; UNIT TYPE A POSITIVE
[2016-05-29 14:36] LABS: UNIT TYPE A POSITIVE
[2016-05-29] MEDS: WARFARIN SODIUM 4 MG TAB PO SCH (18:12)
[2016-05-29] MEDS: SODIUM CHLORIDE 0.9% FLUSH 10 ML SOL IV PRN (20:27)
[2016-05-29] MEDS: ZOLPIDEM TARTRATE 5 MG TAB PO PRN (20:27)
[2016-05-30] MEDS: PANTOPRAZOLE SODIUM 40 MG ECT PO SCH (06:12)
[2016-05-30] MEDS: ASPIRIN EC 81 MG PO SCH (08:44)
[2016-05-30] MEDS: FERROUS SULFATE 325 MG TAB PO SCH (08:44)
[2016-05-30] MEDS: FLUTICASONE PROPIONATE SPR NAS SCH (08:45)
[2016-05-30] MEDS: GLUCOSAMINE SULFATE 500 MG CAP PO SCH ×2 (08:45→20:12)
[2016-05-30] MEDS: FUROSEMIDE 40 MG TAB PO SCH (08:50)
[2016-05-30] MEDS: AMLODIPINE 5 MG TAB PO SCH (08:51)
[2016-05-30] MEDS: CALCIUM CARBONATE 500 MG TAB PO SCH ×2 (08:52→20:12)
[2016-05-30] MEDS: MULTIVITAMIN2 1 EA TAB PO SCH (08:53)
[2016-05-30] MEDS: LABETALOL HYDROCHLORIDE 100 MG TAB PO SCH ×2 (08:55→20:12)
[2016-05-30] MEDS: LISINOPRIL 20 MG TAB PO SCH (08:57)
[2016-05-30] MEDS: FUROSEMIDE 20 MG TAB PO SCH (12:17)
[2016-05-30] MEDS: SODIUM CHLORIDE 0.9% FLUSH 10 ML SOL IV PRN (18:16)
[2016-05-30] MEDS: WARFARIN SODIUM 2 MG TAB PO SCH (18:17)
[2016-05-30] MEDS: WARFARIN SODIUM 4 MG TAB PO SCH (19:01)
[2016-05-30] MEDS: ZOLPIDEM TARTRATE 5 MG TAB PO PRN (20:21)
[2016-05-31] MEDS: PANTOPRAZOLE SODIUM 40 MG ECT PO SCH (06:38)
[2016-05-31] MEDS: CALCIUM CARBONATE 500 MG TAB PO SCH ×2 (09:26→20:15)
[2016-05-31] MEDS: LISINOPRIL 20 MG TAB PO SCH (09:27)
[2016-05-31] MEDS: FUROSEMIDE 40 MG TAB PO SCH (09:27)
[2016-05-31] MEDS: AMLODIPINE 5 MG TAB PO SCH (09:27)
[2016-05-31] MEDS: FLUTICASONE PROPIONATE SPR NAS SCH (09:27)
[2016-05-31] MEDS: MULTIVITAMIN2 1 EA TAB PO SCH (09:27)
[2016-05-31] MEDS: FERROUS SULFATE 325 MG TAB PO SCH (09:27)
[2016-05-31] MEDS: ASPIRIN EC 81 MG PO SCH (09:27)
[2016-05-31] MEDS: LABETALOL HYDROCHLORIDE 100 MG TAB PO SCH ×2 (09:29→20:16)
[2016-05-31] MEDS: ACETAMINOPHEN 500 MG 500 MG TAB PO PRN ×2 (09:36→20:15)
[2016-05-31] MEDS: GLUCOSAMINE SULFATE 500 MG CAP PO SCH ×2 (11:50→20:16)
[2016-05-31] MEDS: FUROSEMIDE 20 MG TAB PO SCH (11:51)
[2016-05-31] MEDS: WARFARIN SODIUM 1 MG TAB PO SCH (17:15)
[2016-05-31] MEDS: ZOLPIDEM TARTRATE 5 MG TAB PO PRN (20:15)
[2016-06-01] MEDS: PANTOPRAZOLE SODIUM 40 MG ECT PO SCH (07:51)
[2016-06-01] MEDS: CALCIUM CARBONATE 500 MG TAB PO SCH ×2 (09:30→20:27)
[2016-06-01] MEDS: LABETALOL HYDROCHLORIDE 100 MG TAB PO SCH ×2 (09:35→20:27)
[2016-06-01] MEDS: FLUTICASONE PROPIONATE SPR NAS SCH (09:37)
[2016-06-01] MEDS: ASPIRIN EC 81 MG PO SCH (09:37)
[2016-06-01] MEDS: FERROUS SULFATE 325 MG TAB PO SCH (09:37)
[2016-06-01] MEDS: MULTIVITAMIN2 1 EA TAB PO SCH (09:38)
[2016-06-01] MEDS: GLUCOSAMINE SULFATE 500 MG CAP PO SCH ×2 (09:38→20:29)
[2016-06-01] MEDS: FUROSEMIDE 40 MG TAB PO SCH (09:38)
[2016-06-01] MEDS: AMLODIPINE 5 MG TAB PO SCH (09:40)
[2016-06-01] MEDS: LISINOPRIL 20 MG TAB PO SCH (09:40)
[2016-06-01] MEDS: ACETAMINOPHEN 500 MG 500 MG TAB PO PRN ×2 (09:48→20:33)
[2016-06-01] MEDS: FUROSEMIDE 20 MG TAB PO SCH (11:58)
[2016-06-01] MEDS: WARFARIN SODIUM 1 MG TAB PO SCH (18:15)
[2016-06-01] MEDS: ZOLPIDEM TARTRATE 5 MG TAB PO PRN (20:33)
[2016-06-02] MEDS: PANTOPRAZOLE SODIUM 40 MG ECT PO SCH (07:34)
[2016-06-02] MEDS: CALCIUM CARBONATE 500 MG TAB PO SCH ×2 (09:42→20:48)
[2016-06-02] MEDS: LABETALOL HYDROCHLORIDE 100 MG TAB PO SCH ×2 (09:43→20:49)
[2016-06-02] MEDS: ASPIRIN EC 81 MG PO SCH (09:44)
[2016-06-02] MEDS: FERROUS SULFATE 325 MG TAB PO SCH (09:44)
[2016-06-02] MEDS: FLUTICASONE PROPIONATE SPR NAS SCH (09:46)
[2016-06-02] MEDS: GLUCOSAMINE SULFATE 500 MG CAP PO SCH ×2 (09:46→20:48)
[2016-06-02] MEDS: FUROSEMIDE 40 MG TAB PO SCH (09:47)
[2016-06-02] MEDS: LISINOPRIL 20 MG TAB PO SCH (09:47)
[2016-06-02] MEDS: MULTIVITAMIN2 1 EA TAB PO SCH (09:47)
[2016-06-02] MEDS: AMLODIPINE 5 MG TAB PO SCH (09:48)
[2016-06-02] MEDS: FUROSEMIDE 20 MG TAB PO SCH (12:01)
[2016-06-02] MEDS ORDERED: WARFARIN SODIUM 6 MG TAB PO SCH (18:00)
[2016-06-02] MEDS: ZOLPIDEM TARTRATE 5 MG TAB PO PRN (20:47)
[2016-06-02] MEDS: ACETAMINOPHEN 500 MG 500 MG TAB PO PRN (20:47)
[2016-06-03] MEDS: PANTOPRAZOLE SODIUM 40 MG ECT PO SCH (06:49)
[2016-06-03 07:19] LABS: BASOPHILS % (AUTO) 1 % (0-3); EOSINOPHILS % (AUTO) 1 % (0-9); HEMATOCRIT 31 % (35-47); MEAN CORPUSCULAR HGB CONC 33.7 gm/dl (32.0-36.0); MEAN CORPUSCULAR VOLUME 86 fL (81-99); MONOCYTES % (AUTO) 9.4 % (0-12); NEUTROPHILS % (AUTO) 67.5 % (37-80)
[2016-06-03] MEDS: CALCIUM CARBONATE 500 MG TAB PO SCH ×2 (10:49→20:23)
[2016-06-03] MEDS: MULTIVITAMIN2 1 EA TAB PO SCH (10:49)
[2016-06-03] MEDS: FERROUS SULFATE 325 MG TAB PO SCH (10:50)
[2016-06-03] MEDS: FUROSEMIDE 40 MG TAB PO SCH (10:50)
[2016-06-03] MEDS: LABETALOL HYDROCHLORIDE 100 MG TAB PO SCH ×2 (10:50→20:23)
[2016-06-03] MEDS: LISINOPRIL 20 MG TAB PO SCH (10:50)
[2016-06-03] MEDS: ASPIRIN EC 81 MG PO SCH (10:50)
[2016-06-03] MEDS: AMLODIPINE 5 MG TAB PO SCH (10:50)
[2016-06-03] MEDS: FLUTICASONE PROPIONATE SPR NAS SCH (10:51)
[2016-06-03] MEDS: GLUCOSAMINE SULFATE 500 MG CAP PO SCH ×2 (10:51→20:22)
[2016-06-03] MEDS: ACETAMINOPHEN 500 MG 500 MG TAB PO PRN ×2 (10:57→20:54)
[2016-06-03] MEDS: FUROSEMIDE 20 MG TAB PO SCH (13:23)
[2016-06-03] MEDS ORDERED: WARFARIN SODIUM 4 MG TAB PO SCH (18:00)
[2016-06-03] MEDS: ZOLPIDEM TARTRATE 5 MG TAB PO PRN (20:22)
[2016-06-04] MEDS: PANTOPRAZOLE SODIUM 40 MG ECT PO SCH (06:27)
[2016-06-04] MEDS: FERROUS SULFATE 325 MG TAB PO SCH (08:51)
[2016-06-04] MEDS: ASPIRIN EC 81 MG PO SCH (08:51)
[2016-06-04] MEDS: GLUCOSAMINE SULFATE 500 MG CAP PO SCH ×2 (08:51→20:11)
[2016-06-04] MEDS: FLUTICASONE PROPIONATE SPR NAS SCH (08:51)
[2016-06-04] MEDS: CALCIUM CARBONATE 500 MG TAB PO SCH ×2 (08:52→20:10)
[2016-06-04] MEDS: AMLODIPINE 5 MG TAB PO SCH (08:52)
[2016-06-04] MEDS: FUROSEMIDE 40 MG TAB PO SCH (08:52)
[2016-06-04] MEDS: MULTIVITAMIN2 1 EA TAB PO SCH (08:52)
[2016-06-04] MEDS: LABETALOL HYDROCHLORIDE 100 MG TAB PO SCH ×2 (08:52→20:10)
[2016-06-04] MEDS: LISINOPRIL 20 MG TAB PO SCH (08:53)
[2016-06-04] MEDS: FUROSEMIDE 20 MG TAB PO SCH (11:43)
[2016-06-04] MEDS ORDERED: WARFARIN SODIUM 1 MG TAB PO SCH (18:00)
[2016-06-04] MEDS: ZOLPIDEM TARTRATE 5 MG TAB PO PRN (20:09)
[2016-06-04] MEDS: ACETAMINOPHEN 500 MG 500 MG TAB PO PRN (20:09)
[2016-06-05 01:17] VITALS: TEMP 97.6
[2016-06-05] MEDS: PANTOPRAZOLE SODIUM 40 MG ECT PO SCH (06:39)
[2016-06-05] MEDS: FLUTICASONE PROPIONATE SPR NAS SCH (08:29)
[2016-06-05] MEDS: GLUCOSAMINE SULFATE 500 MG CAP PO SCH (08:29)
[2016-06-05] MEDS: FERROUS SULFATE 325 MG TAB PO SCH (08:29)
[2016-06-05] MEDS: AMLODIPINE 5 MG TAB PO SCH (08:29)
[2016-06-05] MEDS: CALCIUM CARBONATE 500 MG TAB PO SCH (08:29)
[2016-06-05] MEDS: MULTIVITAMIN2 1 EA TAB PO SCH (08:29)
[2016-06-05] MEDS: ASPIRIN EC 81 MG PO SCH (08:29)
[2016-06-05] MEDS: FUROSEMIDE 40 MG TAB PO SCH (08:29)
[2016-06-05] MEDS: LABETALOL HYDROCHLORIDE 100 MG TAB PO SCH (08:30)
[2016-06-05] MEDS: LISINOPRIL 20 MG TAB PO SCH (08:30)
[2016-06-05 09:20] VITALS: BP 166/87; PULSE 65; O2SAT 91
[2016-06-05 09:54] VITALS: RESP 28
[2016-06-05] MEDS ORDERED: WARFARIN SODIUM 6 MG TAB PO SCH ×2 (14:38→18:00)
== END 2016-06-05 10:54 | DRG 949 ==
LOC: ACUTE CARE 14:54
PROVIDERS: ADMIT Emergency Medicine; ATTEND Emergency Medicine
PROC: F02Z1ZZ Dressing Assessment (ICD-10-PCS; 2016-05-09)
PROC: F02Z0ZZ Bathing/Showering Assessment (ICD-10-PCS; 2016-05-09)
PROC: F02Z3ZZ Grooming/Personal Hygiene Assessment (ICD-10-PCS; 2016-05-09)
PROC: F01ZCZZ Transfer Assessment (ICD-10-PCS; 2016-05-09)
PROC: F01ZDFZ Gait and/or Balance Assessment using Assistive, Adaptive, Supportive or Protective Equipment (ICD-10-PCS; 2016-05-09)
PROC: F07Z9FZ Gait Training/Functional Ambulation Treatment using Assistive, Adaptive, Supportive or Protective Equipment (ICD-10-PCS; 2016-05-09)
PROC: F07Z8ZZ Transfer Training Treatment (ICD-10-PCS; 2016-05-09)
PROC: F07Z5ZZ Bed Mobility Treatment (ICD-10-PCS; 2016-05-09)
PROC: F08Z1ZZ Dressing Techniques Treatment (ICD-10-PCS; 2016-05-09)
PROC: 30233N1 Transfusion of Nonautologous Red Blood Cells into Peripheral Vein, Percutaneous Approach (ICD-10-PCS; principal; 2016-05-29)
DX: Z48.812 Encounter for surgical aftercare following surgery on the circulatory system (principal); N39.0 Urinary tract infection, site not specified; L89.152 Pressure ulcer of sacral region, stage 2; E11.9 Type 2 diabetes mellitus without complications; I10 Essential (primary) hypertension; D64.9 Anemia, unspecified; Z95.2 Presence of prosthetic heart valve; R09.89 Other specified symptoms and signs involving the circulatory and respiratory systems; Z79.01 Long term (current) use of anticoagulants; Z95.0 Presence of cardiac pacemaker; R33.9 Retention of urine, unspecified; L84 Corns and callosities; R53.1 Weakness; Z47.1 Aftercare following joint replacement surgery; Z96.641 Presence of right artificial hip joint
CPT/HCPCS: 36415; 51798; 80048; 80053; 81001; 82962; 85018; 85025; 85610; 86850; 86900; 86901; 86920; 87077; 87088; 87186; 94150; 94664; 94760; 99070; P9016; A4450; A6232